=== PATIENT | female | born 2005 | race Caucasian/White ===

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

== ENCOUNTER 2024-04-17 11:31 | Emergency (ER) | payer OTHER ==
[2024-04-17] MEDS ORDERED: Metoclopramide 10 MG/10 ML UDCUP ONE (11:50)
[2024-04-17] MEDS ORDERED: Acetaminophen 500 MG TAB ONE (11:50)
== END 2024-04-17 12:41 | disposition home or self-care (01) ==
LOC: CSHERS 11:31
DX: O99.891 Other specified diseases and conditions complicating pregnancy (principal); G43.909 Migraine, unspecified, not intractable, without status migrainosus; O99.332 Smoking (tobacco) complicating pregnancy, second trimester; F17.290 Nicotine dependence, other tobacco product, uncomplicated; Z3A.17 17 weeks gestation of pregnancy
CPT/HCPCS: 99283

== ENCOUNTER 2024-05-16 13:20 | Outpatient (CLI) | payer OTHER | END 2024-05-16 13:21 | disposition home or self-care (01) | LOC: CSHULT 13:20 | PROVIDERS: ATTEND Obstetrics & Gynecology | DX: O09.90 Supervision of high risk pregnancy, unspecified, unspecified trimester (principal); R01.1 Cardiac murmur, unspecified | CPT/HCPCS: 93306 ==

== ENCOUNTER 2024-06-24 16:19 | Day surgery (SDC) | payer OTHER ==
[2024-06-24] MEDS ORDERED: hydrALAZINE 20 MG/ML VIAL SLOW IVP PRN (16:30)
[2024-06-24] MEDS ORDERED: Betamet Acet/Betamet Na Ph 30 MG/5 ML VIAL ONE (17:06)
[2024-06-24] MEDS ORDERED: Betamet Acet/Betamet Na Ph 30 MG/5 ML VIAL IM SCH (17:30)
== END 2024-06-24 20:40 | disposition short-term general hospital (02) ==
LOC: CSHLD/OP 16:19
PROVIDERS: ATTEND Family Medicine
DX: O36.5920 Maternal care for other known or suspected poor fetal growth, second trimester, not applicable or unspecified (principal); O30.042 Twin pregnancy, dichorionic/diamniotic, second trimester; O99.212 Obesity complicating pregnancy, second trimester; O35.8XX0 Maternal care for other (suspected) fetal abnormality and damage, not applicable or unspecified; Q27.0 Congenital absence and hypoplasia of umbilical artery; O99.891 Other specified diseases and conditions complicating pregnancy; R01.1 Cardiac murmur, unspecified; Z87.891 Personal history of nicotine dependence; O40.2XX1 Polyhydramnios, second trimester, fetus 1; Z3A.26 26 weeks gestation of pregnancy; Z79.899 Other long term (current) drug therapy; Z88.0 Allergy status to penicillin
CPT/HCPCS: 99283; J0702